=== PATIENT | female | born 1955 | race African-American/Black ===

== ENCOUNTER 2017-02-07 03:50 | Emergency (ER) | payer OTHER ==
[~2017-02-07] VITALS: Ht 162.6 cm; Wt 67.6 kg
[~2017-02-07 03:50] MED LIST: AZITHROMYCIN250 MG ORAL; BACTRIM DS TAB1 EAC1 ORAL; MUCINEX FAST-M1 EAC2 PO; PROMETHAZINE-D118 ML ORAL; TESSALON PERLE100 M2 ORAL; TESSALON PERLE100 MG ORAL; TRAMADOL HCL50 MG ORAL; TYLENOL325 MG ORAL
[2017-02-07 04:02] VITALS: BP 119/81
--- NOTE | 2017-02-07 04:12 | Emergency Room Report ---
History of Present Illness General Chief Complaint: Abdominal Pain Source: Patient Present Illness HPI Is a 61-year-old female who presents chiefly abdominal pain. She said she's been having a lot of gas cramping pain. Pain is sharp and crampy in nature. Lots of flatulent. Pain is 8/10. She just started her second course of Augmentin for sinus infection. No nausea no vomiting. No diarrhea. Nothing made it better. Nothing made it worse. Allergies: Coded Allergies: CODEINE (Verified Allergy, Intermediate, 05/19/15) Patient History Past Medical History: see triage record, old chart reviewed Past Surgical History: other Pertinent Family History: none Social History: Reports: smoking Now: No Immunizations: other Reviewed Nursing Documentation: PMH: Agreed, PSxH: Agreed Nursing Documentation-PMH Hx Hypertension: Yes Hx Asthma: Yes - bronchitis Review of Systems Eye: Denies: blurred vision, eye pain ENT: Denies: ear pain, nose congestion, throat swelling Respiratory: Denies: cough, shortness of breath Cardiovascular: Denies: chest pain, palpitations Gastrointestinal: Reports: abdominal pain, Denies: diarrhea, nausea, vomiting Musculoskeletal: Denies: back pain, joint pain Skin: Denies: rash Neurological: Denies: headache, numbness Endocrine: Denies: increased thirst, increased urine Hematologic/Lymphatic: Denies: easy bruising All Other Systems: negative except mentioned in HPI Physical Exam Vital Signs Date Time Temp Pulse Resp B/P Pulse Ox O2 Delivery O2 Flow Rate FiO2 02/07/17 03:56 97.9 101 16 119/81 96 Room Air vitals normal Sp02 EP Interpretation: reviewed, normal General Appearance: well appearing, no apparent distress, alert Head: normocephalic, atraumatic Eyes: bilateral eye EOMI, bilateral eye PERRL ENT: hearing grossly normal, normal pharynx Neck: full range of motion, supple, no meningismus Respiratory: chest non-tender, lungs clear, normal breath sounds Cardiovascular #1: regular rate, rhythm, no murmur Gastrointestinal: no mass, no organomegaly, no bruit, non-distended, abnormal bowel sounds - Hyper active, tenderness - Mild diffusely Musculoskeletal: back normal, gait/station normal, normal range of motion Neurologic: alert, oriented x3 Psychiatric: mood/affect normal Skin: warm/dry Medical Decision Making Diagnostic Impression: Primary Impression: Abdominal pain Qualified Codes: R10.9 - Unspecified abdominal pain Additional Impression: Gastritis Qualified Codes: K29.00 - Acute gastritis without bleeding ER Course She present with abdominal pain is very gassy. This most likely secondary to cause of the pain. No evidence of obstruction or acute appendicitis. No evidence of acute abdomen. She does have a history of gastritis but not taking her medication. She is waiting for approval to see a electrical construction project manager. CT/MRI/US Diagnostic Results CT/MRI/US Diagnostic Results : Imaging Test Ordered: CT abdomen and pelvis Impression Read by radiologist. Gastritis. Normal appendix. Last Vital Signs Date Time Temp Pulse Resp B/P Pulse Ox O2 Delivery O2 Flow Rate FiO2 02/07/17 03:56 97.9 101 16 119/81 96 Room Air MALISSA ANDERSON M.D. Feb 07, 2017 04:12
[2017-02-07] MEDS ORDERED: Ketorolac 60mg Inj IM ONE (04:15)
[2017-02-07] MEDS ORDERED: PRILOSEC OTC20 MG ORAL (05:17)
[2017-02-07] MEDS ORDERED: SIMETHICONE125 M1 PO (05:17)
[2017-02-07 05:29] VITALS: BP 127/72
--- NOTE | 2017-02-07 09:37 | Diagnostic Imaging Report ---
Indication: Abdominal pain Technique: Spiral acquisitions obtained through the abdomen and pelvis. No oral contrast utilized, per emergency room physician request No IV contrast utilized, per referring physician request.. Multiplanar reconstructions were generated. Total dose length product 7 mGycm. CTDIvol(s) 14 mGy. Dose reduction achieved using automated exposure control Comparison: None Findings: A very limited amount of contrast is seen within the transverse colon, possibly on the basis of prior contrast administration elsewhere. There is colonic diverticulosis. No evidence of diverticulitis. The appendix is normal. No small bowel distention. No free or loculated intraperitoneal air or fluid. There is a small fat-containing umbilical hernia. Questionably a small sliding-type hiatal hernia. There is a small fat-containing right inguinal hernia There is suggestion of diffuse wall thickening/edema of the stomach, although this could conceivably be an artifact of lack of distention. Lack of IV contrast limits assessment of the solid organs. The liver contains a calcification within the right lobe. The gallbladder, bile ducts, pancreas, spleen, adrenals, kidneys are unremarkable. No pelvic mass or adenopathy. The uterus and ovaries are unremarkable. No retroperitoneal or mesenteric mass or adenopathy. The lung bases demonstrate minimal atelectasis on the left, are otherwise clear. The bones are unremarkable. Impression: Diffuse gastric wall thickening, suspect gastritis. Correlate with clinical findings. Small fat-containing right inguinal and umbilical hernias Calcification within the right lobe of the liver, probably old granulomatous disease This agrees with the preliminary interpretation provided overnight by [facility] teleradiology service. The CT scanner at [facility] is accredited by the [employer] and the scans are performed using protocols designed to limit radiation exposure to as low as reasonably achievable to attain images of sufficient resolution adequate for diagnostic evaluation.
== END 2017-02-07 05:28 | disposition home or self-care (01) ==
LOC: EMR 05:04
DX: K29.70 Gastritis, unspecified, without bleeding (principal); K40.90 Unilateral inguinal hernia, without obstruction or gangrene, not specified as recurrent; K42.9 Umbilical hernia without obstruction or gangrene
CPT/HCPCS: 74176; 96372; 99284

== ENCOUNTER 2018-06-09 14:05 | Emergency (ER) | payer OTHER ==
[~2018-06-09] VITALS: Ht 162.6 cm; Wt 61.2 kg
[~2018-06-09 14:05] MED LIST changes: +PRILOSEC OTC20 MG ORAL; +SIMETHICONE125 M1 PO
[2018-06-09 14:23] VITALS: BP 127/86
[2018-06-09] MEDS ORDERED: Norco 5mg/325mg tab ORAL ONE (14:30)
--- NOTE | 2018-06-09 15:41 | Emergency Room Report ---
History of Present Illness General Chief Complaint: Upper Extremity Injury Source: Patient, Medical Record Present Illness HPI 62-year-old female presents to the emergency department complaining of 10 out of 10 in severity localized pain to the right shoulder since yesterday. Patient reports that she woke up and was experiencing pain and exacerbation primarily with attempted to use or raise her right arm. Patient is right-hand dominant. Patient denies strenuous activities or recent trauma/fall. denies changes in temperature or skin color changes in the affected extremity. pt. denies weakness or paresthesias. Denies Gross loss of sensation or gross motor movements of the extremities, incontinence of bowel or bladder. Denies CP, Palpitations, LOC, AMS, dizziness, Changes in Vision, weakness or a sudden severe headache. Allergies: Coded Allergies: CODEINE (Verified Allergy, Intermediate, 05/19/15) Patient History Past Surgical History: unable to obtain Pertinent Family History: none Last Menstrual Period: menopause Now: No Reviewed Nursing Documentation: PMH: Agreed; PSxH: Agreed Nursing Documentation-PMH Past Medical History: No History, Except For Hx Hypertension: Yes Hx Asthma: Yes - bronchitis Hx Gastrointestinal Problems: No - HEP C Review of Systems All Other Systems: negative except mentioned in HPI Physical Exam Vital Signs Date Time Temp Pulse Resp B/P (MAP) Pulse Ox O2 Delivery O2 Flow Rate FiO2 06/09/18 14:16 98.2 96 18 127/86 98 Room Air Sp02 EP Interpretation: reviewed, normal General Appearance: alert, GCS 15, non-toxic, mild distress Head: normocephalic, atraumatic Eyes: bilateral eye normal inspection, bilateral eye PERRL ENT: hearing grossly normal, normal voice Neck: full range of motion Respiratory: lungs clear, normal breath sounds, speaking full sentences Cardiovascular #1: regular rate, rhythm, normal capillary refill Gastrointestinal: non tender, soft Musculoskeletal: back normal, gait/station normal, normal range of motion, tender - TTP to the top of the right shoulder and mild lateral ttp. Pt. has pain with attempts to raise arm above the 45* angle. equal and strong senior business intelligence analyst strength bilaterally, NVI. , no obvious step-off or grinding noted. Neurologic: alert, oriented x3, responsive, motor strength/tone normal, sensory intact, normal gait, speech normal, grossly normal Psychiatric: judgement/insight normal Skin: normal color, no rash, warm/dry, well hydrated Medical Decision Making PA Attestation Dr. Ahumada is my supervising Physician whom patient management has been discussed with. Diagnostic Impression: Primary Impression: Rotator cuff injury Qualified Codes: S46.001A - Unspecified injury of muscle(s) and tendon(s) of the rotator cuff of right shoulder, initial encounter Additional Impression: Shoulder pain, right Qualified Codes: M25.511 - Pain in right shoulder ER Course 62-year-old female presents to the emergency department complaining of 10 out of 10 in severity localized pain to the right shoulder since yesterday. Patient reports that she woke up and was experiencing pain and exacerbation primarily with attempted to use or raise her right arm. Patient is right-hand dominant. Patient denies strenuous activities or recent trauma/fall. denies changes in temperature or skin color changes in the affected extremity. pt. denies weakness or paresthesias. Denies Gross loss of sensation or gross motor movements of the extremities, incontinence of bowel or bladder. Denies CP, Palpitations, LOC, AMS, dizziness, Changes in Vision, weakness or a sudden severe headache. Ddx considered but are not limited to Fracture, dislocation, contusion, Sprain/ Strain/Spasm, DVT of UE, Neoplastic mets, A/C separation or rotator cuff injury just to name a few. Vital signs: are WNL, pt. is afebrile H&PE are most consistent with musculoskeletal injury will perform imaging to r/ o fractures/dislocations. ORDERS: - X-ray Right shoulder 3 views - negative for fx, Dislocation, or significant soft tissue injury, per preliminary read in ED, and signed by CHRIS Desai, my supervising physician has reviewed, and agrees with my interpretation. ED INTERVENTIONS: - Sylvania PO + Zofran ( pt. reports can take norco, but will usually make her nauseous if she has not eaten). - Right arm Sling applied by precision optics technician. Pt. remains neurovascularly intact. I Also took time to discuss with this patient several incidental findings on previous CT scan that she needs to follow-up with her PCP regarding gastric thickening as well as sclerotic lesion in the right lobe of her lung. She is given a copy of the official radiology report of her previous CT scan ( abdomen and Pelvis). DISCHARGE: At this time pt. is stable for d/c to home. Will provide printed patient care instructions, and any necessary prescriptions. Care plan and follow up instructions have been discussed with the patient prior to discharge. Other X-Ray Diagnostic Results Other X-Ray Diagnostic Results : X-Ray ordered: Right shoulder # of Views/Limited Vs Complete: 3 View Indication: Pain EP Interpretation: Yes CHRIS Xray: Interpretation reviewed, by supervising MD, and agrees with findings. Interpretation: no dislocation, no soft tissue swelling, no fractures Impression: No acute disease Electronically Signed by: dAa Desai PA-C Last Vital Signs Date Time Temp Pulse Resp B/P (MAP) Pulse Ox O2 Delivery O2 Flow Rate FiO2 06/09/18 15:27 98.2 06/09/18 14:23 96 18 127/86 98 Room Air Disposition: HOME, SELF-CARE Condition: Stable Scripts Ibuprofen* (MOTRIN*) 400 Mg Tablet 400 MG ORAL THREE TIMES A DAY, #12 TAB 0 Refills Prov: Ada Desai 06/09/18 Hydrocodone Bit/Acetaminophen 5-325* (NORCO 5-325*) 1 Each Tablet 1 TAB ORAL Q6H PRN for For Pain, #6 TAB 0 Refills Prov: Ada Desai 06/09/18 Referrals: [facility],REFERRING (PCP) Patient Instructions: Rotator Cuff Injury, Rotator Cuff Tendinitis, Shoulder Pain, [id number] Additional Instructions: Take medications as directed. Follow up with an ONCOLOGY REGISTRAR in 3-5 days, even if your symptoms have resolved. If symptoms persist MRI may be required at the discretion of your PCP or Ortho Specialist. --Please review list of primary care clinics, if you do not already have a primary care provider who can give you an Orthopedic Referral. Return sooner to ED if new symptoms occur, or current symptoms become worse. Do not drink alcohol, drive, or operate heavy machinery while taking Sylvania as this may cause drowsiness. - Please note that this Emergency Department Report was dictated using [employer]circuit breaker assembler technology software, occasionally this can lead to erroneous entry secondary to interpretation by the dictation equipment. Ada Desai Jun 09, 2018 15:41
[2018-06-09] MEDS ORDERED: NORCO 5-325 TA1 EACH ORAL (15:42)
[2018-06-09] MEDS ORDERED: IBUPROFEN400 MG ORAL (15:42)
[2018-06-09 15:46] VITALS: BP 127/86
--- NOTE | 2018-06-09 16:21 | Diagnostic Imaging Report ---
Indication: Pain/trauma Technique: 3 views of the right shoulder Comparison: none Findings: No acute fractures. No dislocations. The joint spaces are preserved. Impression: Negative
== END 2018-06-09 15:47 | disposition home or self-care (01) ==
LOC: EMR 14:49
DX: S46.001A Unspecified injury of muscle(s) and tendon(s) of the rotator cuff of right shoulder, initial encounter (principal); Y92.9 Unspecified place or not applicable; X58.XXXA Exposure to other specified factors, initial encounter; J45.909 Unspecified asthma, uncomplicated; I10 Essential (primary) hypertension; B19.20 Unspecified viral hepatitis C without hepatic coma
CPT/HCPCS: 99283

== ENCOUNTER 2019-01-20 12:06 | Emergency (ER) | payer OTHER ==
[~2019-01-20] VITALS: Ht 160 cm; Wt 63.5 kg
[~2019-01-20 12:06] MED LIST changes: +IBUPROFEN400 MG ORAL; +NORCO 5-325 TA1 EACH ORAL
--- NOTE | 2019-01-20 12:21 | NUR ---
ED Nurse Note: Pt walked in c/o burning sensation on urination x 2 wks and pain. pt reports headache as well. urine specimen obtained will cont monitor and wait for further orders.
[2019-01-20 12:27] VITALS: BP 142/94
--- NOTE | 2019-01-20 12:48 | Emergency Room Report ---
History of Present Illness General Chief Complaint: Female Urogenital Problems Source: Medical Record Present Illness HPI 63-year-old female with no significant past medical history here complaining of 2 days of frequency of urination as well as painful urination. Patient is rating her pain 3 out of 10 upon urination, denies hematuria. She further denies nausea, vomiting, fever, chills and flank pain. Has not taken any medication for pain and for her symptoms. Denies vaginal discharge, ulcers, pruritus. Patient has no history of diabetes. Denies chest pain, shortness of breath, palpitation, and all associated symptoms Allergies: Coded Allergies: CODEINE (Verified Allergy, Intermediate, 05/19/15) Patient History Past Medical History: see triage record Past Surgical History: unable to obtain Pertinent Family History: none Now: No Immunizations: UTD Reviewed Nursing Documentation: PMH: Agreed; PSxH: Agreed Nursing Documentation-PMH Hx Hypertension: Yes Hx Asthma: Yes - bronchitis Hx Gastrointestinal Problems: No - HEP C Review of Systems All Other Systems: negative except mentioned in HPI Physical Exam Vital Signs Date Time Temp Pulse Resp B/P (MAP) Pulse Ox O2 Delivery O2 Flow Rate FiO2 01/20/19 12:09 97.9 90 16 142/94 (110) 98 Room Air Sp02 EP Interpretation: reviewed, normal General Appearance: normal inspection, well appearing, no apparent distress Head: normocephalic, atraumatic Eyes: bilateral eye normal inspection, bilateral eye PERRL ENT: normal ENT inspection, normal pharynx Neck: normal inspection, full range of motion Respiratory: normal inspection, chest non-tender, no rhonchi, no retraction, no wheezing Cardiovascular #1: normal inspection, normal peripheral pulses, no edema, no murmur, normal capillary refill Gastrointestinal: normal bowel sounds, non tender, soft, no mass, no guarding Genitourinary: no CVA tenderness Musculoskeletal: normal inspection, back normal Neurologic: normal inspection, alert, oriented x3 Psychiatric: normal inspection, judgement/insight normal Skin: normal inspection, normal color, no rash Lymphatic: normal inspection, no adenopathy Medical Decision Making PA Attestation All my diagnosis and treatment plans were reviewed ad discussed with my supervising physician Dr. Farias Diagnostic Impression: Primary Impression: UTI (urinary tract infection) ER Course 63-year-old female with no significant past medical history here complaining of 2 days of frequency of urination as well as painful urination. Patient is rating her pain 3 out of 10 upon urination, denies hematuria. She further denies nausea, vomiting, fever, chills and flank pain. Has not taken any medication for pain and for her symptoms. Denies vaginal discharge, ulcers, pruritus. Patient has no history of diabetes. Denies chest pain, shortness of breath, palpitation, and all associated symptoms Ddx considered but are not limited to: UTI, pylonephritis, urinary incontinence , prolapsed bladder Vital signs: are WNL, pt. is afebrile H&PE are most consistent with: UTI uncomplicated ORDERS: UA, urine cx, Macrobid, Pyridium ED INTERVENTIONS: None required at this time. DISCHARGE: At this time pt. is stable for d/c to home. Will provide printed patient care instructions, and any necessary prescriptions. Care plan and follow up instructions have been discussed with the patient prior to discharge. Take medication as directed drink a lot of water follow-up with primary care provider if symptoms continue UA: leuks and WBC Last Vital Signs Date Time Temp Pulse Resp B/P (MAP) Pulse Ox O2 Delivery O2 Flow Rate FiO2 01/20/19 12:27 97.9 90 16 142/94 98 Room Air Disposition: HOME, SELF-CARE Condition: Stable Scripts Phenazopyridine Hcl* (PYRIDIUM*) 200 Mg Tablet 200 MG ORAL THREE TIMES A DAY for 2 Days, #6 TAB 0 Refills Prov: Yue Brown 01/20/19 Nitrofurantoin Monohyd/M-Cryst* (MACROBID 100 MG*) 100 Mg Capsule 100 MG ORAL EVERY 12 HOURS for 7 Days, #14 CAP Prov: Yue Brown 01/20/19 Patient Instructions: Urinary Tract Infection Yue Brown Jan 20, 2019 12:48
[2019-01-20] MEDS ORDERED: NITROFURANTOIN100 M2 ORAL (12:50)
[2019-01-20] MEDS ORDERED: PHENAZOPYRIDIN200 MG ORAL (12:50)
[2019-01-20 12:53] LABS: APPEARANCE,URINE CLEAR; BILIRUBIN, URINE NEGATIVE (NEGATIVE); COLOR,URINE PALE YELLOW; GLUCOSE, URINE (UA) NEGATIVE (NEGATIVE); KETONES,URINE 3+ (NEGATIVE); LEUKOCYTE ESTERASE ,URINE 3+ (NEGATIVE); NITRITE,URINE NEGATIVE (NEGATIVE); PH,URINE 5 (4.5-8.0); PROTEIN,URINE NEGATIVE (NEGATIVE); UROBILINOGEN,URINE NORMAL MG/DL (0.0-1.0)
--- NOTE | 2019-01-20 13:13 | NUR ---
ED Discharge Note: Patient is being discharged from medical care. Awake, alert and oriented x4. After care instructions, including prescriptions were given. Patient verbalized understanding of After care instructions. ID band were removed. Patient ambulated out with all personal belongings with steady gait.
== END 2019-01-20 13:14 | disposition home or self-care (01) ==
LOC: EMR 12:55
DX: N39.0 Urinary tract infection, site not specified (principal); Z88.6 Allergy status to analgesic agent; I10 Essential (primary) hypertension; Z86.19 Personal history of other infectious and parasitic diseases
CPT/HCPCS: 81001; 87086; 87181; 99283

== ENCOUNTER → 2019-11-21 | Emergency (ER) | payer OTHER ==
[~2019-11-21] MED LIST changes: +NITROFURANTOIN100 M2 ORAL; +PHENAZOPYRIDIN200 MG ORAL
--- NOTE | 2019-11-21 09:56 | NUR ---
ED Nurse Note: Pt left the hospital before being triaged or seen by MD.
--- NOTE | 2019-11-22 17:13 | Emergency Room Report ---
History of Present Illness Present Illness HPI Patient left the ER without being seen by me. Allergies: Coded Allergies: CODEINE (Verified Allergy, Intermediate, 05/19/15) Nursing Documentation-PMH Hx Hypertension: Yes Hx Asthma: Yes - bronchitis Hx Gastrointestinal Problems: No - HEP C Medical Decision Making Disposition: LEFT W/OUT BEING SEEN Referrals: NOT CHOSEN [facility]/,REFERRING (PCP) Dae Ibanez M.D. Nov 22, 2019 17:12
== END | disposition left against medical advice (07) ==
LOC: EDUNIT# 09:55 → EDBD 09:55 → EMR 10:05
DX: Z53.21 Procedure and treatment not carried out due to patient leaving prior to being seen by health care provider (principal); I10 Essential (primary) hypertension; Z86.19 Personal history of other infectious and parasitic diseases; Z88.6 Allergy status to analgesic agent